=== PATIENT | female | born 1960 | race Caucasian/White ===

== ENCOUNTER → 2017-03-15 | Outpatient (CLI) | payer OTHER ==
[~2017-03-15] MED LIST: ALLEGRA ALLERGY60 MG PO; SINGULAIR 110 MG/TAB PO
== END ==
LOC: MC.RAD 15:56
DX: Z12.31 Encounter for screening mammogram for malignant neoplasm of breast (principal)

== ENCOUNTER → 2018-10-18 | Outpatient (CLI) | payer BC | LOC: COL.VAS 13:08 | DX: I11.9 Hypertensive heart disease without heart failure (principal); I35.0 Nonrheumatic aortic (valve) stenosis ==

== ENCOUNTER 2018-11-08 06:37 | Day surgery (SDC) | payer BC ==
[~2018-11-08] VITALS: Ht 177.8 cm; Wt 162.7 kg
[~2018-11-08 06:37] MED LIST changes: +ALLEGRA ALLERG180 MG PO; -ALLEGRA ALLERGY60 MG PO
[2018-11-08 08:05] LABS: HEMATOCRIT 39.4 % (37.0-47.0); HEMOGLOBIN 12.8 g/dl (12.5-16.0); MEAN CELL VOLUME 86 fl (80.0-100.0); MEAN CORPUSCULAR HEMOGLOBIN 28 pg (27.0-31.0); MEAN CORPUSCULAR HGB CONC 33 g/dl (33.0-37.0); MEAN PLATELET VOLUME 10.1 fl (7.4-10.4); PLATELET COUNT 277 K/mm3 (130-400); RED BLOOD COUNT 4.57 M/mm3 (4.10-5.30); REDCELL DISTRIBUTION WIDTH-CV 14.6 % (11.5-14.5)
[2018-11-08 08:09] LABS: PROTHROMBIN TIME 11.7 SECONDS (9.7-12.8)
[2018-11-08] MEDS ORDERED: ASPIRIN E.C. 8181 MG PO (08:16)
[2018-11-08] MEDS ORDERED: TOPROL XL 50MG50 MG PO (08:19)
[2018-11-08] MEDS ORDERED: ZYRTEC 10MG10 MG PO (08:22)
[2018-11-08] MEDS ORDERED: ROBAXIN 75750 MG/TAB PO (08:22)
[2018-11-08] MEDS ORDERED: SUDAFED 12 HOU120 MG PO (08:24)
[2018-11-08] MEDS ORDERED: ALIVE PRENATAL1 EACH PO (08:29)
[2018-11-08] MEDS ORDERED: ELDERBERRY PO (08:29)
[2018-11-08 08:33] VITALS: BP 150/99; PULSE 56; TEMP 97.8
[2018-11-08 08:46] LABS: CALCIUM 9.4 mg/dL (8.4-10.2); CREATININE, serum 0.67 mg/dL (0.52-1.25)
[2018-11-08 09:45] VITALS: BP 134/56; PULSE 77
[2018-11-08 10:00] VITALS: BP 124/64; PULSE 72
[2018-11-08 10:15] VITALS: BP 114/83; PULSE 81
[2018-11-08 10:30] VITALS: BP 131/74; PULSE 72
[2018-11-08 10:51] VITALS: BP 138/66; PULSE 78
--- NOTE | 2018-11-08 10:51 | NUR ---
Discharge instructions given to pt.Pt verbalizes understanding.INT removed,catheter tip intact.
--- NOTE | 2018-11-08 11:20 | NUR ---
Pt escorted out via wheelchair by this nurse.
== END 2018-11-08 11:36 | disposition home or self-care (01) ==
LOC: COL.CAR 06:37
PROVIDERS: Internal Medicine Cardiovascular Disease
DX: Q21.1 Atrial septal defect (principal); I34.0 Nonrheumatic mitral (valve) insufficiency; D64.9 Anemia, unspecified; I10 Essential (primary) hypertension; J30.2 Other seasonal allergic rhinitis; Z90.49 Acquired absence of other specified parts of digestive tract; Z88.5 Allergy status to narcotic agent; Z79.82 Long term (current) use of aspirin; Z82.49 Family history of ischemic heart disease and other diseases of the circulatory system; Z83.3 Family history of diabetes mellitus
CPT/HCPCS: G9654; J2704

== ENCOUNTER → 2019-06-25 | Outpatient (CLI) | payer BC ==
[~2019-06-25] MED LIST changes: +ALIVE PRENATAL1 EACH PO; +ASPIRIN E.C. 8181 MG PO; +ELDERBERRY PO; +ROBAXIN 75750 MG/TAB PO; +SUDAFED 12 HOU120 MG PO; +TOPROL XL 50MG50 MG PO; +ZYRTEC 10MG10 MG PO
== END ==
LOC: MC.RAD 09:00
DX: Z12.31 Encounter for screening mammogram for malignant neoplasm of breast (principal)

== ENCOUNTER → 2020-05-15 | Outpatient (CLI) | payer BC | LOC: COL.RAD 08:47 | DX: M79.645 Pain in left finger(s) (principal) | CPT/HCPCS: J3301; Q9967 ==

== ENCOUNTER → 2020-06-26 | Outpatient (CLI) | payer BC | LOC: MC.RAD 07:58 | DX: Z12.31 Encounter for screening mammogram for malignant neoplasm of breast (principal); Z98.82 Breast implant status ==

== ENCOUNTER 2020-07-04 10:45 | Outpatient (RCR) | payer BC | END 2020-07-04 11:31 | disposition home health service (06) | LOC: MKS.ESL.PT 10:45 | DX: M22.2X2 Patellofemoral disorders, left knee (principal); M62.89 Other specified disorders of muscle ==

== ENCOUNTER 2021-09-25 13:44 | Outpatient (CLI) | payer BC ==
[~2021-09-25] VITALS: Ht 177.8 cm; Wt 159.0 kg
[2021-09-25] VITALS (8 sets, daily range): BP systolic 136–152; BP diastolic 70–99; PULSE 82–91; TEMP 99.1–99.4
== END 2021-09-25 15:30 | disposition home or self-care (01) ==
LOC: EUO 13:44
DX: U07.1 COVID-19 (principal); E66.01 Morbid (severe) obesity due to excess calories; I51.9 Heart disease, unspecified; Z68.43 Body mass index [BMI] 50.0-59.9, adult
CPT/HCPCS: M0245

== ENCOUNTER → 2022-04-08 | Outpatient (CLI) | payer BC | LOC: MC.RAD 08:04 | DX: Z12.31 Encounter for screening mammogram for malignant neoplasm of breast (principal) ==

== ENCOUNTER → 2022-07-01 | Outpatient (CLI) | payer BC | LOC: COL.RAD 14:36 | DX: R29.6 Repeated falls (principal) ==

== ENCOUNTER 2022-08-16 16:37 | Emergency (ER) | payer BC ==
[~2022-08-16] VITALS: Ht 177.8 cm; Wt 159.1 kg
[2022-08-16 16:51] VITALS: TEMP 98.2
[2022-08-16 18:16] LABS: BASO # 0.1 K/mm3 (0.0-0.2); BASO % 0.9 % (0.0-2.0); EOS # 0.1 K/mm3 (0.0-0.7); EOS % 1.6 % (0.0-4.0); GRAN # 3.9 K/mm3 (1.4-6.5); GRAN % 56.5 % (42.2-75.2); HEMATOCRIT 45.1 % (37.0-47.0); HEMOGLOBIN 14.7 g/dl (12.5-16.0); LYMPH # 2.3 K/mm3 (1.2-3.4); LYMPH % 32.8 % (20.0-51.0); MEAN CELL VOLUME 85 fl (80.0-100.0); MEAN CORPUSCULAR HEMOGLOBIN 28 pg (27-31); MEAN CORPUSCULAR HGB CONC 33 g/dl (33.0-37.0); MONO # 0.5 K/mm3 (0.1-0.6); MONO % 7.9 % (1.7-9.3); PLATELET COUNT 328 K/mm3 (130-400); RED BLOOD COUNT 5.29 M/mm3 (4.10-5.30); REDCELL DISTRIBUTION WIDTH-CV 14.1 % (11.5-14.5)
[2022-08-16 18:31] LABS: ALBUMIN 4.2 gm/dL (3.4-4.8); CALCIUM 10.5 mg/dL (8.4-10.2); CREATININE, serum 0.83 mg/dL (0.57-1.11); PHOSPHOROUS 2.9 mg/dL (2.3-4.7); POTASSIUM 3.6 mmol/L (3.5-4.5)
[2022-08-16 18:50] LABS: TSH w REFLEX 1.917 uIU/mL (0.350-4.940)
[2022-08-16 19:34] VITALS: BP 158/61; PULSE 89
== END 2022-08-16 19:42 | disposition home or self-care (01) ==
LOC: COL.ER 16:37
PROVIDERS: Emergency Medicine
DX: R00.0 Tachycardia, unspecified (principal)
CPT/HCPCS: J7120

== ENCOUNTER → 2023-06-23 | Outpatient (CLI) | payer BC | LOC: MC.RAD 07:48 | DX: Z12.31 Encounter for screening mammogram for malignant neoplasm of breast (principal) ==